=== PATIENT | male | born 1945 | race Caucasian/White ===

== ENCOUNTER 2017-01-08 17:35 | Emergency (ER) | payer OTHER ==
[~2017-01-08] VITALS: Ht 180.3 cm; Wt 95.5 kg
[2017-01-08 17:40] VITALS: BP 192/88; PULSE 101; RESP 12; TEMP 98.3; O2SAT 99
[2017-01-08 17:43] VITALS: BP 192/88; PULSE 101; RESP 12; O2SAT 99
[2017-01-08] MEDS ORDERED: DIPHTH/TETANUS/ACEL PERTUSSIS (BOOSTER) 0.5 ML VIAL/PFS IM ONE (17:45)
[2017-01-08] MEDS ORDERED: HYDROmorphone HCL PF 1 MG/ML VIAL IV PUSH ONE (17:45)
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
[2017-01-08] MEDS ORDERED: TAMS0.4C4 PO (17:52)
[2017-01-08] MEDS ORDERED: OMEPRAZOLE PO (17:52)
[2017-01-08] MEDS ORDERED: TROS20TA PO (17:54)
[2017-01-08] MEDS ORDERED: OMEP20TA PO (18:05)
[2017-01-08 18:24] VITALS: BP 189/81; PULSE 98; RESP 15; TEMP 98.3; O2SAT 99
[2017-01-08 19:05] VITALS: BP 181/95; PULSE 100; RESP 16; O2SAT 100
== END 2017-01-08 21:01 | disposition short-term general hospital (02) ==
LOC: NEPC 17:35
DX: T23.332A Burn of third degree of multiple left fingers (nail), not including thumb, initial encounter (principal); T23.362A Burn of third degree of back of left hand, initial encounter; T31.0 Burns involving less than 10% of body surface; T22.212A Burn of second degree of left forearm, initial encounter; T22.211A Burn of second degree of right forearm, initial encounter; T21.12XA Burn of first degree of abdominal wall, initial encounter; Z23 Encounter for immunization; W40.9XXA Explosion of unspecified explosive materials, initial encounter; Y93.89 Activity, other specified; Y92.9 Unspecified place or not applicable
CPT/HCPCS: 90715; 96372; 96374; 99285; J1170